=== PATIENT | female | born 1990 | race Caucasian/White ===

== ENCOUNTER 2017-05-19 15:30 | Outpatient (CLI) | payer OTHER ==
[~2017-05-19] VITALS: Ht 167.6 cm; Wt 78.8 kg
[2017-05-19 16:26] VITALS: BP 126/80
== END 2017-05-19 17:00 | disposition home or self-care (01) ==
LOC: LDOP 15:30
PROVIDERS: ATTEND Student in an Organized Health Care Education/Training Program
DX: O26.893 Other specified pregnancy related conditions, third trimester (principal); R10.31 Right lower quadrant pain; R10.32 Left lower quadrant pain; Z3A.32 32 weeks gestation of pregnancy
CPT/HCPCS: 59025; 81003; 87086; 99201; 99211; G0463

== ENCOUNTER 2017-07-04 23:20 | Inpatient (IN) | payer OTHER ==
[~2017-07-04] VITALS: Ht 167.6 cm; Wt 81.8 kg
[2017-07-04] MEDS ORDERED: NEWBORN KIT ONE ×2 (23:44→23:59)
[2017-07-04] MEDS ORDERED: OXYTOCIN 30U/ 0.9% NaCL 500ML 500 ML ONE (23:45)
[2017-07-04] MEDS ORDERED: D5%-LACTATED RINGERS 1,000 ML IV SCH (23:45)
[2017-07-04] MEDS ORDERED: OXYTOCIN 30U/ 0.9% NaCL 500ML 500 ML IV ONE (23:45)
[2017-07-04] MEDS: LACTATED RINGERS 1,000 ML IV SCH (23:55)
[2017-07-05] MEDS ORDERED: TERBUTALINE 1 MG/ML, 1ML IVPush PRN ×2
[2017-07-05] MEDS ORDERED: PENICILLIN GK 5,000,000 UNITS in DEXTROSE 5% 100 ML IVPB ONE
[2017-07-05] MEDS ORDERED: ONDANSETRON 2MG/ML, 2ML IVPush PRN
[2017-07-05] MEDS ORDERED: SODIUM CITRATE/CITRIC ACID 30 ML UDC PO PRN
[2017-07-05] MEDS ORDERED: CALCIUM CARBONATE 500 MG TAB.CHEW PO PRN
[2017-07-05] MEDS ORDERED: ALUMINUM/MAG/SIMETHICONE 30 ML UDC PO PRN
[2017-07-05] MEDS ORDERED: METOCLOPRAMIDE 5 MG/ML, 2ML IVPush PRN
[2017-07-05] MEDS ORDERED: FENTANYL PF 100 MCG/2ML IVPush PRN
[2017-07-05] MEDS ORDERED: FENTANYL PF 100 MCG/2ML IV PRN
[2017-07-05 00:04] LABS: HEMATOCRIT 36.7 % (34.6-47.8); HEMOGLOBIN 12.6 g/dL (11.7-16.4); WHITE BLOOD COUNT 10.8 x10^3/uL (3.4-10)
[2017-07-05] MEDS: PENICILLIN GK 2,500,000 UNITS in DEXTROSE 5% 100 ML IV SCH ×5 (04:27→23:28)
[2017-07-05 07:15] VITALS: BP 129/83
[2017-07-05] MEDS ORDERED: MISOPROSTOL 25 MCG TABLET ONE ×2 (08:47→13:16)
[2017-07-05] MEDS: MISOPROSTOL 25 MCG TABLET PO PRN ×2 (08:50→13:20)
[2017-07-05] MEDS ORDERED: FENTANYL PF 100 MCG/2ML ONE (18:56)
[2017-07-05] MEDS ORDERED: ONDANSETRON 2MG/ML, 2ML ONE (20:04)
[2017-07-05] MEDS ORDERED: FENTANYL/BUPIV./NS/PF 250 ML EPIDCONT ONE (21:47)
[2017-07-05] MEDS: LACTATED RINGERS 1,000 ML IV SCH (22:15)
[2017-07-06] MEDS: OXYTOCIN 30U/ 0.9% NaCL 500ML 500 ML IV SCH ×3 (02:37→22:37)
[2017-07-06] MEDS ORDERED: DOCUSATE 100 MG CAPSULE PO PRN (03:00)
[2017-07-06] MEDS ORDERED: DIPH,PERTUSS(ACELL),TET VAC/PF NC IM-VACC PRN (03:00)
[2017-07-06] MEDS ORDERED: MAGNESIUM HYDROXIDE 8%, 30ML UDC PO PRN (03:00)
[2017-07-06] MEDS ORDERED: RHOGAM FROM BLOOD BANK 1 NOTE EA IM/IV ONE (03:00)
[2017-07-06] MEDS ORDERED: MISOPROSTOL 200 MCG TABLET PR PRN (03:00)
[2017-07-06] MEDS ORDERED: CALCIUM CARBONATE 500 MG TAB.CHEW PO PRN (03:00)
[2017-07-06] MEDS ORDERED: ONDANSETRON 2MG/ML, 2ML IV PRN (03:00)
[2017-07-06] MEDS ORDERED: HYDROcodone/APAP 5/325 TABLET PO PRN ×2 (03:00)
[2017-07-06 04:20] VITALS: BP 114/74
[2017-07-06 08:00] VITALS: BP 116/79
[2017-07-06] MEDS: PRENATAL VIT/IRON/FA 1 EACH TABLET PO SCH (08:56)
[2017-07-06] MEDS: IBUPROFEN 600 MG TABLET PO PRN ×2 (08:56→22:23)
[2017-07-06 09:24] LABS: HEMATOCRIT 34.3 % (34.6-47.8); HEMOGLOBIN 11.7 g/dL (11.7-16.4); WHITE BLOOD COUNT 21.4 x10^3/uL (3.4-10)
[2017-07-06 12:00] VITALS: BP 121/83
[2017-07-06 16:00] VITALS: BP 120/75
[2017-07-06 19:10] VITALS: BP 124/76
[2017-07-07 00:19] VITALS: BP 130/90
[2017-07-07 03:21] VITALS: BP 126/78
[2017-07-07 07:45] VITALS: BP 134/91
[2017-07-07] MEDS: PRENATAL VIT/IRON/FA 1 EACH TABLET PO SCH (08:12)
[2017-07-07] MEDS: OXYTOCIN 30U/ 0.9% NaCL 500ML 500 ML IV SCH (08:37)
[2017-07-07] MEDS ORDERED: DOCU-131 PO (09:09)
[2017-07-07] MEDS ORDERED: IBUP-1222 PO (09:09)
== END 2017-07-07 10:30 | disposition home or self-care (01) | DRG 775 ==
LOC: LDOP 23:20 → LDIP 23:42 → 2NW 07-06 03:58
PROVIDERS: ADMIT Specialist; ATTEND Specialist
PROC: 10E0XZZ Delivery of Products of Conception, External Approach (ICD-10-PCS; principal; 2017-07-06)
PROC: 0HQ9XZZ Repair Perineum Skin, External Approach (ICD-10-PCS; 2017-07-06)
PROC: 3E0S3CZ (ICD-10-PCS; 2017-07-06)
PROC: 00HU33Z Insertion of Infusion Device into Spinal Canal, Percutaneous Approach (ICD-10-PCS; 2017-07-06)
PROC: 30233S1 Transfusion of Nonautologous Globulin into Peripheral Vein, Percutaneous Approach (ICD-10-PCS; 2017-07-06)
DX: O42.92 Full-term premature rupture of membranes, unspecified as to length of time between rupture and onset of labor (principal); O99.344 Other mental disorders complicating childbirth; F32.9 Major depressive disorder, single episode, unspecified; F41.9 Anxiety disorder, unspecified; O99.824 Streptococcus B carrier state complicating childbirth; O70.0 First degree perineal laceration during delivery; Z37.0 Single live birth; Z3A.39 39 weeks gestation of pregnancy
CPT/HCPCS: 36415; 85025; 85461; 86850; 86870; 86900; 86922; 86923; J2405; J2540; J2790; J3010; J2590; J7120; J7121